=== PATIENT | female | born 1990 | race Caucasian/White ===

== ENCOUNTER 2016-12-03 18:36 | Emergency (ER) | payer OTHER ==
[2016-12-03 18:43] VITALS: TEMP 98.6; BMI 30.9
[2016-12-03] MEDS ORDERED: ACETAMINOPHEN 325 MG TABLET (FP) PO ONE (19:34)
--- NOTE | 2016-12-03 19:34 | PDOC ---
[id number] No Limitations - History of Present Illness Initial Comments: 12/03/16 19:47 The patient is a 26 year old female (; currently approximately 16 weeks ), with no significant past medical history, who presents to the emergency department with lower back pain s/p a mechanical trip and fall down wood stairs earlier this evening. The patient states that she fell backwards, landing on her lower back when she fell. She states that she did not hit her head or abdomen when she fell. The patient denies any LOC. The patient states that she has not taken any medications for pain. The patient denies neck pain. The patient denies any abdominal cramping or vaginal bleeding. Allergies: None reported. Past Surgical History: Gastric Sleeve. Social History: Non smoker. Denies alcohol or drug use. PCP: Dr. Mahesh Reese <Gardenia Clark - Last Filed: 12/03/16 20:40> <Sujey Patton - Last Filed: 12/03/16 21:32> <Maggie Rodríguez - Last Filed: 12/07/16 08:03> - General Chief Complaint: Injury Stated Complaint: 16WKS/FALL/BACK PAIN Time Seen by Provider: 12/03/16 19:23 Past History <Gardenia Clark - Last Filed: 12/03/16 20:40> <Sujey Patton - Last Filed: 12/03/16 21:32> - Past Medical History Other medical history: none - Surgical History Abdominal Surgery: Yes (gastric sleeve) - Immunization History Immunization Up to Date: Yes - Psycho/Social/Smoking Cessation Hx Anxiety: No Suicidal Ideation: No Smoking History: Never smoked Have you smoked in the past 12 months: No Number of Cigarettes Smoked Daily: 0 Cigars Per Day: 0 Information on smoking cessation initiated: No Hx Alcohol Use: No Drug/Substance Use Hx: No Substance Use Type: None <Maggie Rodríguez - Last Filed: 12/07/16 08:03> - Past Medical History Allergies/Adverse Reactions: Allergies Allergy/AdvReac Type Severity Reaction Status Date / Time No Known Allergies Allergy Verified 12/03/16 18:40 Home Medications: Ambulatory Orders Sulfamethoxazole/Trimethoprim [Bactrim DS -] 1 tab PO BID #28 tablet 08/25/13 Review of Systems - Review of Systems Able to Perform ROS?: Yes Comments:: 12/03/16 19:39 GENERAL/CONSTITUTIONAL: No fever or chills. No weakness. HEAD, EYES, EARS, NOSE AND THROAT: No change in vision. No ear pain or discharge. No sore throat. CARDIOVASCULAR: No chest pain or shortness of breath. RESPIRATORY: No cough, wheezing, or hemoptysis. GASTROINTESTINAL: No nausea, vomiting, diarrhea or constipation. GENITOURINARY: No dysuria, frequency, or change in urination. MUSCULOSKELETAL: +Back pain. No joint or muscle swelling or pain. No neck pain. SKIN: No rash. NEUROLOGIC: No headache, vertigo, loss of consciousness, or change in strength/ sensation. ENDOCRINE: No increased thirst. No abnormal weight change. HEMATOLOGIC/LYMPHATIC: No anemia, easy bleeding, or history of blood clots. ALLERGIC/IMMUNOLOGIC: No hives or skin allergy. <Gardenia Clark - Last Filed: 12/03/16 20:40> *Physical Exam - Vital Signs Last Vital Signs Temp Pulse Resp BP Pulse Ox 98.6 F 75 18 117/70 100 12/03/16 18:41 12/03/16 18:41 12/03/16 18:41 12/03/16 18:41 12/03/16 18:41 - Physical Exam Comments: 12/03/16 19:38 GENERAL: Awake, alert, and fully oriented, in no acute distress. HEAD: No signs of trauma. EYES: PERRLA, EOMI, sclera anicteric, conjunctiva clear. ENT: Auricles normal inspection, hearing grossly normal, nares patent, oropharynx clear without exudates. Moist mucosa. NECK: Normal ROM, supple, no lymphadenopathy, JVD, or masses. LUNGS: Breath sounds equal, clear to auscultation bilaterally. No wheezes, and no crackles. HEART: Regular rate and rhythm, normal S1 and S2, no murmurs, rubs or gallops. ABDOMEN: Soft, nontender, normoactive bowel sounds. No guarding, no rebound. No masses. SPINE: Midline tenderness over the sacrum. EXTREMITIES: Normal range of motion, no edema. No clubbing or cyanosis. No cords , erythema, or tenderness. NEUROLOGICAL: Cranial nerves II through XII intact. Strength and sensation are intact. Normal speech, normal gait. SKIN: Warm, dry, normal turgor, no rashes or lesions noted. <Gardenia Clark - Last Filed: 12/03/16 20:40> - Vital Signs Last Vital Signs Temp Pulse Resp BP Pulse Ox 98.6 F 75 18 117/70 100 12/03/16 18:41 12/03/16 18:41 12/03/16 18:41 12/03/16 18:41 12/03/16 18:41 <Sujey Patton - Last Filed: 12/03/16 21:32> - Vital Signs Last Vital Signs Temp Pulse Resp BP Pulse Ox 98.6 F 75 18 117/70 100 12/03/16 18:41 12/03/16 18:41 12/03/16 18:41 12/03/16 18:41 12/03/16 18:41 <Maggie Rodríguez - Last Filed: 12/07/16 08:03> ED Treatment Course - Medications Given in the ED: ED Medications Discontinued Medications Generic Name Dose Route Start Last Admin Trade Name Freq PRN Reason Stop Dose Admin Acetaminophen 975 mg 12/03/16 19:34 12/03/16 20:15 Tylenol - PO 12/03/16 19:35 975 mg ONCE ONE Administration <Sujey Patton - Last Filed: 12/03/16 21:32> Medical Decision Making - Medical Decision Making 12/03/16 20:40 EXAM: US/ US (SINGLE) Reviewed By: Dr. Yahir Gutierrez IMPRESSION: Single viable intrauterine gestation at approximately 16 weeks 6 days. Placenta previa is seen. <Gardenia Clark - Last Filed: 12/03/16 20:40> - Medical Decision Making Spinal exam with no midline tenderness. No advanced imaging needed at present. Will obtain sono to monitor the , UA. If wnl, will DC home. Tylenol for pain. <Maggie Rodríguez - Last Filed: 12/07/16 08:03> *DC/Admit/Observation/Transfer - Attestations Scribe Attestion: 12/03/16 19:37 Documentation prepared by Gardenia Clark, acting as medical anthropologist for Maggie Rodríguez MD. <Gardenia Clark - Last Filed: 12/03/16 20:40> <Sujey Patton - Last Filed: 12/03/16 21:32> <Maggie Rodríguez - Last Filed: 12/07/16 08:03> Diagnosis at time of Disposition: Low back pain Qualifiers: Chronicity: acute Back pain laterality: unspecified Sciatica presence: without sciatica Qualified Code(s): M54.5 - Low back pain - Discharge Dispostion Disposition: HOME Condition at time of disposition: Stable - Referrals Referrals: Mahesh Reese [Primary Care Provider] - - Patient Instructions Printed Discharge Instructions: Low Back Pain Additional Instructions: Please follow up with your [employer] Tylenol as needed for pain Return to the ER for severe/persistent/ worsening pain A copy of your preliminary ultrasound report has been given to you. Ultrasound shows that there is a single viable intrauterine gestation at approximately 16 weeks and 6 days. The placenta previa is seen. cardiac rate is at 132 bpm.
[2016-12-03] MEDS ORDERED: ACETAMINOPHEN 325 MG TABLET (FP) ONE (20:08)
[2016-12-03 22:05] VITALS: BP 120/65; PULSE 72
== END 2016-12-03 22:05 | disposition home or self-care (01) ==
LOC: JER 18:36
DX: M54.5 Low back pain (principal); W10.8XXA Fall (on) (from) other stairs and steps, initial encounter; Y93.89 Activity, other specified; Y92.89 Other specified places as the place of occurrence of the external cause; Z3A.16 16 weeks gestation of pregnancy
CPT/HCPCS: 76801-TC; 99283-25